=== PATIENT | male | born 1980 | race Asian ===

== ENCOUNTER 2016-09-16 08:17 | Inpatient (IN) | payer OTHER ==
[~2016-09-16] VITALS: Ht 165.1 cm; Wt 77.6 kg
[2016-09-16 09:13] LABS: BASOPHIL % 0.5 % (0-2); PLATELET COUNT 252 x10^3mcL (130-400); RED CELL DISTRIBUTION WIDTH 13.3 % (11.5-14.5)
[2016-09-16 09:28] LABS: CHLORIDE SERUM 103 mmol/L (98-107); CREATININE SERUM 1.2 mg/dL (0.7-1.3); GFR1 > 60 mL/min; GLUCOSE SERUM 76 mg/dL (74-106); POTASSIUM SERUM 3.3 mmol/L (3.5-5.1); SODIUM SERUM 139 mmol/L (136-145)
[2016-09-16 09:31] LABS: ALBUMIN 3.7 g/dL (3.4-5.0); ALKALINE PHOSPHATASE 69 U/L (46-116); ALT/SGPT 48 U/L (16-63); AST/SGOT 24 U/L (15-37); BILIRUBIN TOTAL 1.1 mg/dL (0.20-1.00); TOTAL PROTEIN, SERUM 7.6 g/dL (6.4-8.2); URIC ACID 7.8 mg/dL (3.5-7.2)
[2016-09-16 11:37] VITALS: BP 141/85
[2016-09-16 12:59] VITALS: BP 141/85
[2016-09-16 13:17] LABS: T3 TOTAL 0.95 ng/mL
[2016-09-16 13:22] LABS: MAGNESIUM 1.8 mg/dL (1.8-2.4); PHOSPHOROUS 2.9 mg/dL (2.5-4.9)
[2016-09-16 13:23] LABS: CHOLESTEROL/HDL RATIO 2.2
[2016-09-16 13:24] LABS: FREE T4 1.05 ng/dL (0.76-1.46); FREE THYROXINE INDEX 2.8 ug/dL (1.4-4.5)
[2016-09-16] MEDS ORDERED: METOPROLOL SUCC50 M2 PO (17:42)
[2016-09-16] MEDS ORDERED: TOPROL XL25 MG PO (17:43)
[2016-09-16] MEDS ORDERED: SPIRONOLACTONE25 MG PO (17:44)
[2016-09-16] MEDS ORDERED: LOSARTAN POTASS50 M1 PO (17:45)
[2016-09-16] MEDS ORDERED: BUMETANIDE0.5 MG PO (17:45)
[2016-09-16 18:03] VITALS: BP 126/85
[2016-09-16 20:51] VITALS: BP 132/81
[2016-09-17 06:12] VITALS: BP 141/98
[2016-09-17 07:34] LABS: BASOPHIL % 0.6 % (0-2); PLATELET COUNT 214 x10^3mcL (130-400); RED CELL DISTRIBUTION WIDTH 13.2 % (11.5-14.5)
[2016-09-17 07:37] LABS: ALKALINE PHOSPHATASE 53 U/L (46-116); ALT/SGPT 39 U/L (16-63); AST/SGOT 23 U/L (15-37); BILIRUBIN TOTAL 0.56 mg/dL (0.20-1.00); CALCIUM 7.9 mg/dL (8.5-10.1); CARBON DIOXIDE 23.8 mmol/L (21-32); CHLORIDE SERUM 107 mmol/L (98-107); CREATININE SERUM 0.8 mg/dL (0.7-1.3); GFR1 > 60 mL/min; GLUCOSE SERUM 93 mg/dL (74-106); POTASSIUM SERUM 3.8 mmol/L (3.5-5.1); SODIUM SERUM 139 mmol/L (136-145)
[2016-09-17 07:40] LABS: ALBUMIN 2.8 g/dL (3.4-5.0); TOTAL PROTEIN, SERUM 6.1 g/dL (6.4-8.2)
[2016-09-17 09:45] VITALS: BP 149/94
== END 2016-09-17 10:14 | disposition left against medical advice (07) | DRG 602 ==
LOC: ED 08:17 → DU 10:26
PROVIDERS: Emergency Medicine; ADMIT Family Medicine
DX: L03.031 Cellulitis of right toe (principal); E43 Unspecified severe protein-calorie malnutrition; D68.69 Other thrombophilia; M62.50 Muscle wasting and atrophy, not elsewhere classified, unspecified site; E11.51 Type 2 diabetes mellitus with diabetic peripheral angiopathy without gangrene; M10.9 Gout, unspecified; E87.6 Hypokalemia; Z68.28 Body mass index [BMI] 28.0-28.9, adult; D64.9 Anemia, unspecified; Z83.3 Family history of diabetes mellitus
CPT/HCPCS: 82962; 83880; 84439; J0696; J1885; J2270; J2405; J7030; J7040; Q0092

== ENCOUNTER 2017-01-15 16:57 | Emergency (ER) | payer OTHER ==
[~2017-01-15] VITALS: Ht 180.3 cm; Wt 77.1 kg
[~2017-01-15 16:57] MED LIST: BUMETANIDE0.5 MG PO; LOSARTAN POTASS50 M1 PO; METOPROLOL SUCC50 M2 PO; SPIRONOLACTONE25 MG PO; TOPROL XL25 MG PO
[2017-01-15 19:33] LABS: BASOPHIL % 0.5 % (0-2); PLATELET COUNT 270 x10^3mcL (130-400)
[2017-01-15 19:42] LABS: CALCIUM 8.9 mg/dL (8.5-10.1); CARBON DIOXIDE 30.2 mmol/L (21-32); CHLORIDE SERUM 97 mmol/L (98-107); CREATININE SERUM 1.1 mg/dL (0.7-1.3); GFR1 > 60 mL/min; GLUCOSE SERUM 115 mg/dL (74-106); POTASSIUM SERUM 3.8 mmol/L (3.5-5.1); SODIUM SERUM 128 mmol/L (136-145)
[2017-01-15 19:47] LABS: ALBUMIN 3.6 g/dL (3.4-5.0); ALKALINE PHOSPHATASE 74 U/L (46-116); ALT/SGPT 57 U/L (16-63); AST/SGOT 14 U/L (15-37); BILIRUBIN TOTAL 0.46 mg/dL (0.20-1.00); TOTAL PROTEIN, SERUM 7.8 g/dL (6.4-8.2); URIC ACID 7.7 mg/dL (3.5-7.2)
[2017-01-15 20:39] VITALS: BP 110/58
== END 2017-01-15 20:39 | disposition home or self-care (01) ==
LOC: ED 16:57
PROVIDERS: Emergency Medicine
DX: S82.62XA Displaced fracture of lateral malleolus of left fibula, initial encounter for closed fracture (principal); I11.0 Hypertensive heart disease with heart failure; I50.9 Heart failure, unspecified; M10.9 Gout, unspecified; X58.XXXA Exposure to other specified factors, initial encounter; Y93.89 Activity, other specified; Y99.8 Other external cause status; Y92.89 Other specified places as the place of occurrence of the external cause
CPT/HCPCS: 36415